=== PATIENT | male | born 1990 | race Caucasian/White ===

== ENCOUNTER 2021-01-11 01:18 | Emergency (ER) | payer BC, OTHER ==
[~2021-01-11] VITALS: Ht 170.2 cm; Wt 99.8 kg
[2021-01-11] MEDS ORDERED: LIPITOR 20 MG T20 M1 PO (01:31)
[2021-01-11] MEDS ORDERED: ALTACE 1.25 M1.25 MG PO (01:31)
[2021-01-11] MEDS ORDERED: METFORMIN HCL500 M3 PO (01:32)
[2021-01-11 03:08] LABS: ABSOLUTE NEUTROPHILS 3.5 thou/uL (1.4-8.2); BASOPHILS 0.5 % (0.0-2.0); EOSINOPHILS 2.7 % (0.0-3.0); HEMATOCRIT 42.2 % (42.0-52.0); HEMOGLOBIN 14.4 gm/dL (14.0-18.0); LYMPHOCYTES 36.8 % (24.0-44.0); MCH 29.7 pg (26.0-34.0); MCHC 34.1 g/dL (28.0-37.0); MCV 87.3 fL (80.0-100.0); MONOCYTES 6.4 % (1.0-8.0); PLATELET COUNT 242 thou/uL (150-400); POLYS 53.6 % (36.0-66.0); RBC 4.84 mil/uL (4.50-6.00); RDW 12.9 % (10.5-14.5); WBC 6.5 thou/uL (4.0-11.0)
[2021-01-11 03:18] LABS: CALCIUM 8.9 mg/dL (8.5-10.1); CREATININE 1.1 mg/dL (0.7-1.3)
[2021-01-11 03:42] VITALS: BP 130/91
--- NOTE | 2021-01-12 15:07 | EKG ---
[address] [address] ELECTROCARDIOGRAM REPORT Name: MISAEL DEL VALLE [facility]ENTER[facility]ax[facility] [id number] Admission: 01/11/21 Attend Phys: Discharge: 01/11/21 Date of : [birth year] Report #: [id number] [facility] ED Test Date: 2021-01-11 Test Time: 01:25:44 Pat Name: MISAEL DEL VALLE Department: Room: Gender: M District Sales Representative: JENY : 1990 Requested By: Saman Kirk Order Number: [id number] MD: Matthew Farrar Measurements Intervals [place] Rate: 75 P: [place]: QRS: 35 QRSD: 100 T: 18 QT: 344 QTc: 385 Interpretive Statements NSR Artifact in lead(s) I,II,III,aVR,aVL,aVF,V2 No previous ECG available for comparison Electronically Signed On 01-12-2021 15:07:45 CDT by Matthew Farrar [email or web address] <ELECTRONICALLY SIGNED> By: Matthew Farrar MD, [facility] 01/12/21 1507 0125 0125 Matthew Farrar MD, FACRosette /EPI
--- NOTE | 2021-01-12 15:08 | EKG ---
[address] [address] ELECTROCARDIOGRAM REPORT Name: MISAEL DEL VALLE Room #: [facility]ALLax[facility] [id number] Admission: 01/11/21 Attend Phys: Discharge: 01/11/21 Date of : [birth year] Report #: [id number] [facility] ED Test Date: 2021-01-11 Test Time: 02:22:12 Pat Name: MISAEL DEL VALLE Department: Room: Gender: M Contact Center Representative: : 1990 Requested By: Saman Kirk Order Number: [id number] MD: Matthew Farrar Measurements Intervals [place] Rate: 63 P: 34 [place]: 137 QRS: 29 QRSD: 84 T: 48 QT: 385 QTc: 395 Interpretive Statements Sinus rhythm Compared to ECG 01/11/2021 01:25:44 ST (T wave) deviation no longer present Electronically Signed On 01-12-2021 15:08:00 CDT by Matthew Farrar [email or web address] <ELECTRONICALLY SIGNED> By: Matthew Farrar MD, [facility] 01/12/21 1508 0222 0222 Matthew Farrar MD, FACC /EPI
== END 2021-01-11 04:02 | disposition home or self-care (01) ==
LOC: ER 01:18
PROVIDERS: Student in an Organized Health Care Education/Training Program
DX: R00.2 Palpitations (principal); I10 Essential (primary) hypertension; Z90.89 Acquired absence of other organs; Z79.899 Other long term (current) drug therapy